=== PATIENT | male | born 1990 | race Caucasian/White ===

== ENCOUNTER 2016-05-09 01:08 | Emergency (ER) | payer SELFPAY | END 2016-05-09 04:14 | disposition left against medical advice (07) | LOC: ER1 01:08 | DX: Z53.21 Procedure and treatment not carried out due to patient leaving prior to being seen by health care provider (principal) ==

== ENCOUNTER 2016-07-13 07:30 | Emergency (ER) | payer OTHER | END 2016-07-13 08:50 | disposition home or self-care (01) | LOC: ER1 07:30 | DX: T24.001A Burn of unspecified degree of unspecified site of right lower limb, except ankle and foot, initial encounter (principal); L03.115 Cellulitis of right lower limb; F17.210 Nicotine dependence, cigarettes, uncomplicated; Z86.73 Personal history of transient ischemic attack (TIA), and cerebral infarction without residual deficits; X16.XXXA Contact with hot heating appliances, radiators and pipes, initial encounter | CPT/HCPCS: 99283 ==

== ENCOUNTER 2021-09-06 07:52 | Emergency (ER) | payer OTHER ==
[~2021-09-06 07:52] MED LIST: VISTARIL25 MG PO
[2021-09-06 08:51] LABS: HEMOGLOBIN 16.2 gm/dl (14.0-17.5); RED BLOOD COUNT 5.17 M/UL (4.20-5.50); WHITE BLOOD COUNT 11.9 K/UL (4.5-11.0)
[2021-09-06 09:35] LABS: BUN/CREATININE RATIO 22 (0-10)
[2021-09-06] MEDS ORDERED: BENTYL 20MG TAB20 MG PO (11:14)
[2021-09-06] MEDS ORDERED: ZOFRAN 4 MG TAB4 MG PO (11:14)
== END 2021-09-06 11:40 | disposition home or self-care (01) ==
LOC: ER1 07:52
PROVIDERS: Physician Assistant
DX: K80.70 Calculus of gallbladder and bile duct without cholecystitis without obstruction (principal); K21.9 Gastro-esophageal reflux disease without esophagitis; Z90.89 Acquired absence of other organs; F17.200 Nicotine dependence, unspecified, uncomplicated
CPT/HCPCS: 76705; 80053; 81001; 83690; 85025; 93005; 96374; 99284; J2405